=== PATIENT | female | born 1960 | race American Indian/Alaskan Native ===

== ENCOUNTER 2022-01-07 14:06 | Emergency (ER) | payer MEDICAID ==
[2022-01-07 16:04] LABS: Bilirubin,Urine NEG (Negative); Blood,Urine NEG (Negative); Color,Urine Yellow (Yellow); Protein,Urine <15 mg/dL mg/dL (Negative); Urobilinogen,Urine < 2.0 mg/dL (<2.0)
--- NOTE | 2022-01-07 17:50 | Emergency Department Report ---
ED Abdominal Pain HPI - General Chief Complaint: Abdominal Pain Stated Complaint: ABD PAIN Time Seen by Provider: 01/07/22 15:26 Source: EMS Mode of arrival: Stretcher Limitations: No Limitations - History of Present Illness Initial Comments: Patient is a 61-year-old female with history of remote CVA, gastrostomy tube presenting with complaint of constipation and abdominal discomfort. She is accompanied by her daughter who states that the home health nurse relayed this information to her and advised her to come in for evaluation. Patient denies an y nausea or vomiting. Denies any other surgical procedures aside from gastrostomy. Severity scale (0 -10): 0 - Related Data Home Medications Medication Instructions Recorded Confirmed Last Taken Aspirin EC [Halfprin EC] 81 mg PO QDAY 12/18/21 12/18/21 Unknown Atorvastatin [Lipitor] 40 mg PO QHS 12/18/21 12/18/21 Unknown Famotidine [Pepcid] 40 mg PO QHS 12/18/21 12/18/21 Unknown Metoprolol [Lopressor TAB] 25 mg PO BID 12/18/21 12/18/21 Unknown traMADoL [Ultram 50 MG tab] 50 mg FEEDTUBE PRN 12/18/21 12/18/21 Unknown Previous Rx's Medication Instructions Recorded Last Taken Type amLODIPine 10 mg PO QDAY 30 Days #30 tablet 12/19/21 Unknown Rx hydroCHLOROthiazide [HCTZ] 12.5 mg PO QDAY 30 Days #30 capsule 12/19/21 Unknown Rx levETIRAcetam [Keppra TAB] 1,000 mg PO BID 30 Days #120 tablet 12/19/21 Unknown Rx Docusate Sodium [Colace CAP] 100 mg PO BID PRN #10 capsule 01/07/22 Unknown Rx Allergies Allergy/AdvReac Type Severity Reaction Status Date / Time No Known Allergies Allergy Verified 01/07/22 14:09 ED Review of Systems ROS: Stated complaint: ABD PAIN Other details as noted in HPI Comment: All other systems reviewed and negative Constitutional: no symptoms reported Respiratory: denies: cough, shortness of breath, wheezing Cardiovascular: denies: chest pain, palpitations Gastrointestinal: abdominal pain, constipation Musculoskeletal: denies: back pain, joint swelling, arthralgia Skin: denies: rash, lesions Neurological: denies: headache, weakness, paresthesias Psychiatric: denies: anxiety, depression ED Past Medical Hx - Past Medical History Hx CVA: Yes Hx Seizures: Yes - Social History Smoking Status: Never Smoker - Medications Home Medications: Home Medications Medication Instructions Recorded Confirmed Last Taken Type Aspirin EC [Halfprin EC] 81 mg PO QDAY 12/18/21 12/18/21 Unknown History Atorvastatin [Lipitor] 40 mg PO QHS 12/18/21 12/18/21 Unknown History Famotidine [Pepcid] 40 mg PO QHS 12/18/21 12/18/21 Unknown History Metoprolol [Lopressor TAB] 25 mg PO BID 12/18/21 12/18/21 Unknown History traMADoL [Ultram 50 MG tab] 50 mg FEEDTUBE PRN 12/18/21 12/18/21 Unknown History amLODIPine 10 mg PO QDAY 30 Days #30 tablet 12/19/21 Unknown Rx hydroCHLOROthiazide [HCTZ] 12.5 mg PO QDAY 30 Days #30 capsule 12/19/21 Unknown Rx levETIRAcetam [Keppra TAB] 1,000 mg PO BID 30 Days #120 tablet 12/19/21 Unknown Rx Docusate Sodium [Colace CAP] 100 mg PO BID PRN #10 capsule 01/07/22 Unknown Rx ED Physical Exam - General Limitations: No Limitations General appearance: alert, in no apparent distress - Head Head exam: Present: atraumatic, normocephalic - Respiratory Respiratory exam: Present: normal lung sounds bilaterally. Absent: respiratory distress - Cardiovascular Cardiovascular Exam: Present: regular rate, normal rhythm, normal heart sounds - GI/Abdominal GI/Abdominal exam: Present: soft. Absent: distended, tenderness - Rectal Rectal exam: Present: deferred - Neurological Exam Neurological exam: Present: alert, oriented X3 - Psychiatric Psychiatric exam: Present: normal affect, normal mood - Skin Skin exam: Present: warm, dry, intact, normal color ED Course Vital Signs 01/07/22 01/07/22 01/07/22 14:07 14:52 14:54 Temperature 97.7 F Pulse Rate 62 61 61 Respiratory 16 Rate Blood Pressure Blood Pressure 104/64 104/54 [Left] O2 Sat by Pulse 99 100 Oximetry 01/07/22 01/07/22 01/07/22 14:55 15:00 16:00 Temperature Pulse Rate 64 55 L Respiratory Rate Blood Pressure 104/54 109/53 Blood Pressure [Left] O2 Sat by Pulse 100 100 99 Oximetry 01/07/22 01/07/22 01/07/22 17:01 17:41 17:45 Temperature Pulse Rate 57 L 58 L Respiratory 18 Rate Blood Pressure 106/54 106/54 Blood Pressure [Left] O2 Sat by Pulse 100 100 Oximetry 01/07/22 01/07/22 01/07/22 18:01 18:15 18:31 Temperature Pulse Rate 59 L 64 59 L Respiratory Rate Blood Pressure 112/60 112/60 112/60 Blood Pressure [Left] O2 Sat by Pulse 100 99 99 Oximetry 01/07/22 01/07/22 01/07/22 18:45 19:01 19:15 Temperature Pulse Rate 64 69 60 Respiratory Rate Blood Pressure 112/60 114/55 114/55 Blood Pressure [Left] O2 Sat by Pulse 99 95 99 Oximetry 01/07/22 01/07/22 01/07/22 19:31 19:45 20:01 Temperature Pulse Rate 80 75 63 Respiratory Rate Blood Pressure 114/55 114/55 122/65 Blood Pressure [Left] O2 Sat by Pulse 94 100 Oximetry 01/07/22 01/07/22 01/07/22 20:15 20:31 20:45 Temperature Pulse Rate 65 62 61 Respiratory Rate Blood Pressure 122/65 122/65 122/65 Blood Pressure [Left] O2 Sat by Pulse 98 100 100 Oximetry 01/07/22 01/07/22 21:01 21:15 Temperature Pulse Rate 73 59 L Respiratory Rate Blood Pressure 119/60 119/60 Blood Pressure [Left] O2 Sat by Pulse 82 L 100 Oximetry ED Medical Decision Making - Lab Data Result diagrams: 01/07/22 17:35 01/07/22 17:35 - Medical Decision Making chandrika p Patient presenting with complaint of constipation and abdominal discomfort. Laboratory evaluation reveals grossly unremarkable chemistry except for lipase of 77. Patient denies any epigastric pain. CBC and urinalysis unremarkable. Abdominal plain film shows signs consistent with constipation without evidence of significant bowel dilatation. Daughter states the patient has run out of her stool softener which was helping. Will discharge home with Rx for Colace. Critical care attestation.: If time is entered above; I have spent that time in minutes in the direct care of this critically ill patient, excluding procedure time. ED Disposition Clinical Impression: Constipation Disposition: HOME / SELF CARE / HOMELESS Is pt being admited?: No Condition: Stable Instructions: Abdominal Pain (ED), Constipation, Adult, [id number] Time of Disposition: 22:53
[2022-01-07 18:08] LABS: Basophils % (Auto) 0.5 % (0.0-1.8); Eosinophils # (Auto) 0.3 K/mm3 (0.0-0.4); Eosinophils % (Auto) 3.9 % (0.0-4.3); Hematocrit 38.9 % (30.3-42.9); Hemoglobin 12.6 gm/dl (10.1-14.3); Lymphocytes # (Auto) 2.1 K/mm3 (1.2-5.4); Lymphocytes % (Auto) 28.2 % (13.4-35.0); Mean Corpuscular HGB Conc 32 % (30-34); Mean Corpuscular Volume 83 fl (79-97); Monocytes # (Auto) 0.6 K/mm3 (0.0-0.8); Monocytes % (Auto) 7.3 % (0.0-7.3); Platelet Count 271 K/mm3 (140-440); Red Blood Count 4.69 M/mm3 (3.65-5.03); Red Cell Distribution Width 17.5 % (13.2-15.2)
[2022-01-07 19:51] LABS: Alanine Aminotransferase 20 units/L (7-56); Albumin 4.2 g/dL (3.9-5); BUN/Creatinine Ratio 18; Blood Urea Nitrogen 14 mg/dL (7-17); Calcium 9.7 mg/dL (8.4-10.2); Hemolysis Index 7
[2022-01-07 19:53] LABS: Bilirubin,Direct < 0.2 mg/dL (0-0.2)
--- NOTE | 2022-01-07 21:17 | XRay Report ---
ABDOMEN 1 VIEW INDICATION / CLINICAL INFORMATION: abd pain/constipation. COMPARISON: None available. FINDINGS: The study is limited by positioning of the patient's right arm over the abdomen. TUBES / LINES: None. BOWEL GAS PATTERN: The colon contains a moderate amount of stool. No significant bowel dilatation. FREE AIR / EXTRALUMINAL GAS: None seen. ADDITIONAL FINDINGS: No significant additional findings. IMPRESSION: 1. Findings compatible with constipation. No other acute findings to explain the patient's pain. Signer Name: Herminio Hook MD Signed: 01/07/2022 9:12 PM Workstation Name: [id number]
[2022-01-08 00:23] VITALS: BP 132/92
== END 2022-01-08 00:24 | disposition home or self-care (01) ==
LOC: ED 14:06
DX: K59.00 Constipation, unspecified (principal); R10.84 Generalized abdominal pain; Z79.899 Other long term (current) drug therapy
CPT/HCPCS: 36415; 74018; 80048; 80076; 81001; 83690; 85025; 99284